=== PATIENT | male | born 2000 | race American Indian/Alaskan Native ===

== ENCOUNTER 2024-03-16 02:15 | Emergency (ER) | payer SELFPAY ==
[~2024-03-16] VITALS: Ht 185.4 cm; Wt 90.7 kg
[2024-03-16 02:34] VITALS: TEMP 97.9
[2024-03-16] MEDS ORDERED: LORAZEPAM 1 MG TABLET ONE (02:34)
[2024-03-16 02:36] VITALS: BP 141/84; O2SAT 99
[2024-03-16] MEDS: LORAZEPAM 1 MG TABLET PO ONE (02:36)
== END 2024-03-16 05:16 | disposition home or self-care (01) ==
LOC: ER 02:21
DX: F15.10 Other stimulant abuse, uncomplicated (principal); F10.10 Alcohol abuse, uncomplicated; Z59.00 Homelessness unspecified; Y90.9 Presence of alcohol in blood, level not specified